=== PATIENT | female | born 1950 | race Caucasian/White ===

== ENCOUNTER 2024-12-02 07:15 | Day surgery (SDC) | payer MEDICARE, BC ==
[~2024-12-02] VITALS: Ht 165.1 cm; Wt 97.5 kg
[~2024-12-02 07:15] MED LIST: ATOR40TA52 PO; CARV12.544 PO; DULO60CA41 PO; FURO1TAB33 PO; LEVO250T58 PO; MAGN400T40 PO; POM; POTA-228 PO; PRA25T PO; PRAM0.373 PO; RANO500T3 PO; VERA240C2 PO
[2024-12-02] MEDS: HEPARIN IN NS 1000Units/500mL 1,500 ML ONE (07:52)
[2024-12-02] MEDS: IODIXANOL 320MG/ML 100ML BTL IV ONE (07:52)
[2024-12-02] MEDS: fentaNYL CITRATE 100 MCG/2 ML VL ONE (08:06)
[2024-12-02] MEDS: ANGIOMAX 250 MG VIAL IV ONE ×2 (08:06→08:09)
[2024-12-02] MEDS: MIDAZOLAM HCL 2MG/2ML 2ml VIAL (1mg/ml) ONE (08:06)
[2024-12-02] MEDS: VERAPAMIL 2.5MG/ML INJ 2ML VIAL IV ONE (08:09)
[2024-12-02] MEDS: SODIUM CHL 0.9% 0 ML ONE (08:16)
[2024-12-02] MEDS: LIDOCAINE 2%HCL (LOCAL ANESTH.) INJ 20ML MDV ONE (08:17)
[2024-12-02] MEDS: HEPARIN SODIUM (PORCINE) 5000 UNITS/ML 1ML VIAL ONE (08:31)
--- NOTE | 2024-12-02 08:41 | DVH ---
CHEST RADIOGRAPH Indication: pre-op/pain Technique: Single frontal view of the chest was obtained Comparison: None FINDINGS: Lines and Tubes: None Lungs: No focal consolidation. Pleura: No effusion. No pneumothorax. Cardiomediastinal contours: Unremarkable Bones: No acute osseous abnormality. IMPRESSION: No acute cardiopulmonary disease.
[2024-12-02 09:04] VITALS: BP 150/90; PULSE 63; RESP 15; TEMP 98.3; O2SAT 93
--- NOTE | 2024-12-02 09:06 | DVHOP2 ---
Operative Report Procedures performed: Left heart catheterization and bilateral coronary angiogram Moderate sedation Diagnosis: No significant coronary artery disease (ostial diagonal with 10-20% disease and there was minor luminal irregularities of the RCA). LVEF of 55% with normal EDP Cardiac suggestion for management: Optimized medical therapy Lifestyle and risk factor modifications Findings: LVEF: 55% LVEDP: 12 mm Hg There was no transaortic valve pressure gradient Left main: Left main was coming off the left sinus of Valsalva. There was no angiographic evidence of disease in left main. LAD: LAD was coming off the left main. It provided a large diagonal. There was 10-20% ostial diagonal disease. Other portions of LAD and branches were free of disease. LCx: LCx was coming off the left main. It provided a large-sized obtuse marginal 1 and a large-sized obtuse marginal 2. LCX throughout its course and branches was free of disease. RCA: RCA was coming off the right sinus of Valsalva. It was a dominant vessel and provided RPDA. RCA revealed minor luminal irregularities. Presentation: Patient is a 74-year-old female who presented to the office with dyspnea on exertion. Past medical history includes hypertension, hypothyroidism, hyperlipidemia, fibromyalgia, CKD, degenerative disc disease (lumbar spine) and neuropathy. She is allergic to penicillin and sulfa drugs. Echocardiogram of January 2024 in the office revealed ejection fraction of 70% and no specific valvular disease. Nuclear stress test of June 10, 2024 was abnormal and the patient was sent for cardiac catheterization Procedure: After obtaining informed consent, the patient was brought to the hemodialysis lab technician. She was prepped and draped in sterile fashion. Right radial artery was used for access site. 1 mg of Versed and 50 mcg of fentanyl were used for moderate sedation. Using modified Seldinger technique, the right radial artery was accessed and a 6 [place] slender sheath was inserted into it. 2.5 mg of verapamil and 100 mcg of nitroglycerin were given as a cocktail into right radial sheath. 5000 units of heparin was given peripherally. A 5 [place] tiger 4 diagnostic catheter was used to perform left heart catheterization (obtaining pressures and performing left ventriculography) and bilateral coronary angiography. There was no indication for any transcatheter revascularization. Total bleeding was less than 5 mL. There was no dissection/hematoma/perforation. Patient tolerated the procedure with no complication. Right radial artery access site was managed by deploying a TR band. Fluoroscopy time: 4.3 minutes contrast: 50 mL of FERNANDO Mendoza MD Dec 02, 2024 09:06
[2024-12-02 09:18] VITALS: BP 143/82; PULSE 55; RESP 15; O2SAT 93
[2024-12-02 09:33] VITALS: BP 146/75; PULSE 53; RESP 14; O2SAT 95
[2024-12-02] MEDS ORDERED: CALC200S4 (09:36)
[2024-12-02] MEDS ORDERED: PRAM2.25 PO (09:36)
[2024-12-02 09:48] VITALS: BP 145/78; PULSE 57; RESP 15; O2SAT 95
[2024-12-02 10:16] VITALS: BP 130/72; PULSE 62; RESP 16; O2SAT 96
[2024-12-02 10:49] VITALS: BP 129/77; PULSE 65; RESP 16; O2SAT 96
== END 2024-12-02 11:15 | disposition home or self-care (01) ==
LOC: CATH 07:15
PROVIDERS: ATTEND Internal Medicine Cardiovascular Disease
DX: I25.10 Atherosclerotic heart disease of native coronary artery without angina pectoris (principal); R94.39 Abnormal result of other cardiovascular function study; I12.9 Hypertensive chronic kidney disease with stage 1 through stage 4 chronic kidney disease, or unspecified chronic kidney disease; N18.9 Chronic kidney disease, unspecified; E03.9 Hypothyroidism, unspecified; E78.5 Hyperlipidemia, unspecified; M51.369 Other intervertebral disc degeneration, lumbar region without mention of lumbar back pain or lower extremity pain; Z79.899 Other long term (current) drug therapy; Z88.0 Allergy status to penicillin; Z88.1 Allergy status to other antibiotic agents; Z88.8 Allergy status to other drugs, medicaments and biological substances
CPT/HCPCS: 71045; 93458; C1769; C1887; C1894; J1644; J2250; J3010; Q9967; 99152